=== PATIENT | female | born 1955 | race African-American/Black ===

== ENCOUNTER 2023-08-12 13:03 | Inpatient (IN) | payer OTHER ==
[~2023-08-12] VITALS: Ht 172.7 cm; Wt 89.0 kg
[2023-08-12] MEDS: SODIUM CHLORIDE 0.9% 1000ML BAG (SEPSIS BOLUS) IV ONE (13:22)
[2023-08-12 13:26] LABS: BASOPHILS % 0.4 % (0.0-2.0); EOSINOPHILS % 0.2 % (0.0-5.0); HEMATOCRIT. 29.4 % (36.0-48.0); HEMOGLOBIN. 9.6 g/dL (12.0-16.0); LYMPHOCYTES % 10.5 % (20.0-50.0); MEAN CORPUSCULAR HEMOGLOBIN 29.6 pg (28.0-32.0); MEAN CORPUSCULAR HGB CONC 32.7 g/dL (31.0-37.0); MEAN CORPUSCULAR VOLUME 90.5 fL (81.0-99.0); MEAN PLATELET VOLUME 7.5 fl (7.4-10.4); MONOCYTES % 5.1 % (2.0-8.0); NEUTROPHILS % 83.8 % (40.0-76.0); PLATELET 572 x1000/uL (130-400); RED BLOOD CELL COUNT 3.25 mill/uL (4.2-5.4); RED CELL DISTRIBUTION WIDTH 14.9 % (11.6-14.6); WHITE BLOOD COUNT 14.4 x1000/uL (4.5-11.0)
[2023-08-12] MEDS: CEFTRIAXONE 1GM/50ML 50 ML IV ONE (13:29)
[2023-08-12 13:37] LABS: PROTHROMBIN TIME 11.2 sec (9.6-11.0)
[2023-08-12 13:39] LABS: LACTIC ACID 3.2 mmol/L (0.4-2.0)
[2023-08-12 13:40] LABS: ALANINE AMINOTRANSFERASE 20 IU/L (10-49); ALBUMIN 3.8 g/dL (3.2-4.8); ASPARTATE AMINOTRANSFERASE 39 IU/L (<34); BILIRUBIN TOTAL 0.3 mg/dL (0.1-1.0); CALCIUM 10.6 mg/dL (8.7-10.4); CARBON DIOXIDE 24 mEq/L (21-32); CHLORIDE 102 mEq/L (98-107); CREATINE KINASE 289 IU/L (34-145); CREATININE 1.2 mg/dL (0.6-1.0); GLUCOSE 173 mg/dL (70-105); POTASSIUM 4.6 mEq/L (3.5-5.1); PROTEIN TOTAL 8.1 g/dL (6.0-8.3); SODIUM 136 mEq/L (136-145); UREA NITROGEN BLOOD 26 mg/dL (9-23)
[2023-08-12 13:45] LABS: TROPONIN I HIGH SENSITIVITY 56 ng/L (3.0-34)
[2023-08-12] MEDS: AZITHROMYCIN 500MG/250ML 250 ML IV NR (14:05)
[2023-08-12 14:07] LABS: CLARITY URINE CLOUDY (CLEAR); COLOR URINE YELLOW (YELLOW); GLUCOSE URINE NEGATIVE (NEGATIVE); KETONES URINE NEGATIVE (NEGATIVE); LEUKOCYTE ESTERASE URINE TRACE (NEGATIVE); NITRITE URINE POSITIVE (NEGATIVE); OCCULT BLOOD URINE 3+ (NEGATIVE); PH URINE 5.5 (4.5-8.0); PROTEIN URINE 2+ (NEGATIVE); SPECIFIC GRAVITY URINE 1.016 (1.005-1.030); UROBILINOGEN URINE 0.2 E.U./dL (0.2-1.0)
[2023-08-12 14:09] LABS: BG BASE EXCESS 2.4 mmol/L (-2.0-2.0); BG CARBOXYHEMOGLOBIN 0.1 % (0.5-1.5); BG DEOXYHEMOGLOBIN 0.9 % (0.0-5.0); BG FRACTION INSPIRED OXYGEN 100; BG HCO3 ACT 26.7 mmol/L (22.0-26.0); BG METHEMOGLOBIN 0.4 % (0.0-1.5); BG OXYGEN SATURATION 99.1 % (92.0-98.5); BG OXYHEMOGLOBIN 98.6 % (94.0-97.0); BG PCO2 40.1 mmHg (35.0-45.0); BG PH 7.441 (7.350-7.450); BG PO2 206.1 mmHg (75.0-100.0); BG SAMPLE SITE RIGHT BRACHIAL; BG TOTAL HEMOGLOBIN 10.2 g/dL (12.0-18.0); BG VENT MODE MASK - NRB
[2023-08-12 14:22] LABS: BACTERIA URINE 3+; RBC URINE 25-50 /hpf (0-2); SQUAMOUS EPITHELIAL CELL URINE 1+ /lpf (RARE/1+); YEAST URINE NONE SEEN
[2023-08-12] MEDS ORDERED: METHYLPREDNISOLONE SOD SUCC 125MG/2ML (ACT-O-VIAL) IV SCH (16:30)
[2023-08-12] MEDS ORDERED: MAGNESIUM/ALUMINUM HYDROXIDE/SIMETHICONE 30ML UDC PO PRN (16:30)
[2023-08-12] MEDS ORDERED: ONDANSETRON HCL 4MG/2ML INJ IV PRN (16:30)
[2023-08-12] MEDS ORDERED: ACETAMINOPHEN 325MG TABLET PO PRN ×2 (16:30)
[2023-08-12] MEDS ORDERED: DOCUSATE SODIUM 100MG CAPSULE PO PRN (16:30)
[2023-08-12] MEDS ORDERED: PIPERACILLIN/TAZO 3.375G/50ML 50 ML IV NR (16:34)
[2023-08-12] MEDS ORDERED: VANCOMYCIN 1.5GM/250ML IV NR (17:00)
[2023-08-12] MEDS: DEXT 5%/0.9% NACL 1,000 ML IV SCH (17:19)
[2023-08-12] MEDS: METHYLPREDNISOLONE SOD SUCC 125MG/2ML (ACT-O-VIAL) IV NR (17:19)
[2023-08-12 17:22] LABS: FERRITIN 578 ng/mL (10-291); VITAMIN B12 SERUM 1902 pg/mL (211-911)
[2023-08-12] MEDS ORDERED: MIDAZOLAM 100MG/100ML PMX 100 ML IV PRN (18:45)
[2023-08-12 19:02] LABS: CALCIUM 9.9 mg/dL (8.7-10.4); CARBON DIOXIDE 24 mEq/L (21-32); CHLORIDE 102 mEq/L (98-107); GLUCOSE 155 mg/dL (70-105); IRON 47 ug/dL (50-170); PHOSPHORUS 3.2 mg/dL (2.5-4.9); POTASSIUM 3.8 mEq/L (3.5-5.1); SODIUM 137 mEq/L (136-145); UREA NITROGEN BLOOD 25 mg/dL (9-23)
[2023-08-12] MEDS: LORAZEPAM 2MG/ML INJ IV NR (19:02)
[2023-08-12 19:04] LABS: LACTIC ACID 4.9 mmol/L (0.4-2.0)
[2023-08-12] MEDS: MIDAZOLAM HCL 100 MG in SODIUM CHLORIDE 0.9% 100 ML IV PRN (19:12)
[2023-08-12] MEDS: SUCCINYLCHOLINE CHLORIDE 200MG/10ML IV NR (19:19)
[2023-08-12] MEDS: ETOMIDATE 2MG/ML 10ML VIAL IV NR (19:19)
[2023-08-12 19:30] VITALS: PULSE 96; RESP 16
[2023-08-12 20:06] VITALS: RESP 24
[2023-08-12] MEDS ORDERED: ENOXAPARIN 30MG/0.3ML SYR SUBCUT SCH (21:00)
[2023-08-12 21:15] VITALS: PULSE 102; RESP 16
[2023-08-12 22:20] LABS: CREATINE KINASE MB FRACTION 29.3 ng/mL (0.5-3.6)
[2023-08-12] MEDS: MAGNESIUM 4 G PREMIX 100 ML IV NR (22:52)
[2023-08-12] MEDS: METHYLPREDNISOLONE SOD SUCC 40MG/ML (ACT-O-VIAL) IV SCH (22:52)
[2023-08-12 23:05] LABS: BG BASE EXCESS 0.1 mmol/L (-2.0-2.0); BG CARBOXYHEMOGLOBIN 0.3 % (0.5-1.5); BG DEOXYHEMOGLOBIN 0.3 % (0.0-5.0); BG FRACTION INSPIRED OXYGEN 100; BG HCO3 ACT 23.7 mmol/L (22.0-26.0); BG METHEMOGLOBIN 0.5 % (0.0-1.5); BG OXYGEN SATURATION 99.7 % (92.0-98.5); BG OXYHEMOGLOBIN 98.9 % (94.0-97.0); BG PCO2 34.6 mmHg (35.0-45.0); BG PH 7.453 (7.350-7.450); BG PO2 340.5 mmHg (75.0-100.0); BG SAMPLE SITE RIGHT RADIAL; BG TOTAL HEMOGLOBIN 10.4 g/dL (12.0-18.0); BG VENT MODE VENT - AC
[2023-08-12 23:30] VITALS: PULSE 106; RESP 16
[2023-08-12] MEDS: PIPERACILLIN/TAZO 3.375G/50ML 50 ML IV SCH (23:54)
[2023-08-13] VITALS (57 sets, daily range): BP systolic 124–156; BP diastolic 68–93; PULSE 83–108; RESP 0–26; TEMP 97.7–98.7
[2023-08-13] MEDS ORDERED: IOHEXOL-350 100 ML BOTTLE ONE (04:55)
[2023-08-13] MEDS: PIPERACILLIN/TAZO 3.375G/50ML 50 ML IV SCH (05:54)
[2023-08-13 05:58] LABS: BASOPHILS % 0.1 % (0.0-2.0); HEMATOCRIT. 31.7 % (36.0-48.0); HEMOGLOBIN. 10.4 g/dL (12.0-16.0); LYMPHOCYTES % 7.8 % (20.0-50.0); MEAN CORPUSCULAR HEMOGLOBIN 29.5 pg (28.0-32.0); MEAN CORPUSCULAR HGB CONC 32.9 g/dL (31.0-37.0); MEAN CORPUSCULAR VOLUME 89.9 fL (81.0-99.0); MEAN PLATELET VOLUME 7.4 fl (7.4-10.4); MONOCYTES % 4.7 % (2.0-8.0); NEUTROPHILS % 87.4 % (40.0-76.0); PLATELET 542 x1000/uL (130-400); RED BLOOD CELL COUNT 3.53 mill/uL (4.2-5.4); RED CELL DISTRIBUTION WIDTH 15.2 % (11.6-14.6); WHITE BLOOD COUNT 19.2 x1000/uL (4.5-11.0)
[2023-08-13 06:48] LABS: CREATINE KINASE MB FRACTION 22.7 ng/mL (0.5-3.6)
[2023-08-13 07:02] LABS: ALANINE AMINOTRANSFERASE 18 IU/L (10-49); ALBUMIN 3.5 g/dL (3.2-4.8); ASPARTATE AMINOTRANSFERASE 31 IU/L (<34); BILIRUBIN TOTAL 0.4 mg/dL (0.1-1.0); CALCIUM 10.1 mg/dL (8.7-10.4); CARBON DIOXIDE 24 mEq/L (21-32); CHLORIDE 101 mEq/L (98-107); CHOLESTEROL 175 mg/dL (<200); GLUCOSE 173 mg/dL (70-105); HDL CHOLESTEROL 49 mg/dL (>65); LDL CHOLESTEROL 96 mg/dL (5-100); POTASSIUM 4.3 mEq/L (3.5-5.1); PROTEIN TOTAL 7.1 g/dL (6.0-8.3); SODIUM 136 mEq/L (136-145); T4 FREE 1.41 ng/dL (0.89-1.76); THYROID STIMULATING HORMONE 0.37 uIU/mL (0.55-4.78); TRIGLYCERIDE 92 mg/dL (0-150); UREA NITROGEN BLOOD 26 mg/dL (9-23)
[2023-08-13 07:33] LABS: BG BASE EXCESS -1.4 mmol/L (-2.0-2.0); BG CARBOXYHEMOGLOBIN 0.1 % (0.5-1.5); BG DEOXYHEMOGLOBIN 0.9 % (0.0-5.0); BG METHEMOGLOBIN 0.3 % (0.0-1.5); BG OXYGEN SATURATION 99.1 % (92.0-98.5); BG OXYHEMOGLOBIN 98.7 % (94.0-97.0); BG PCO2 32.5 mmHg (35.0-45.0); BG PH 7.449 (7.350-7.450); BG PO2 160.8 mmHg (75.0-100.0); BG SAMPLE SITE RIGHT RADIAL; BG TOTAL HEMOGLOBIN 11.2 g/dL (12.0-18.0); BG VENT MODE VENT - AC
[2023-08-13] MEDS: IPRATROPIUM/ALBUTEROL 0.5-3(2.5)MG/3ML NEB HHN PRN (08:20)
[2023-08-13] MEDS: BUDESONIDE 0.5MG/2ML NEB HHN SCH (08:20)
[2023-08-13] MEDS ORDERED: LEVETIRACETAM 500 MG in SODIUM CHLORIDE 0.9% 100 ML IV PRN (08:30)
[2023-08-13] MEDS: FUROSEMIDE 40MG/4ML VIAL IVP NR (08:45)
[2023-08-13] MEDS: VANCOMYCIN 2,000 MG in DEXT 5% WATER 500 ML IV NR (08:45)
[2023-08-13] MEDS: PANTOPRAZOLE SODIUM 40 MG/VIAL IV SCH (08:45)
[2023-08-13] MEDS ORDERED: VANCOMYCIN 750MG PREMIX 150 ML IV SCH (12:00)
[2023-08-13] MEDS ORDERED: DEXTROSE 50% WATER 50ML SYRINGE IV PRN (15:15)
[2023-08-13] MEDS: BLOOD SUGAR DIAGNOSTIC STRIP TEST SCH (17:49)
[2023-08-13] MEDS: INSULIN LISPRO 100 UNITS/ML SUBCUT SCH (17:55)
[2023-08-13] MEDS: LEVETIRACETAM 500MG PREMIX 100 ML IV SCH (21:45)
[2023-08-14] VITALS (86 sets, daily range): BP systolic 122–177; BP diastolic 67–134; PULSE 87–106; RESP 14–22; TEMP 97.4–98.3; O2SAT 100
[2023-08-14 05:13] LABS: HEMATOCRIT. 34.1 % (36.0-48.0); HEMOGLOBIN. 11.1 g/dL (12.0-16.0); MEAN CORPUSCULAR HEMOGLOBIN 29.2 pg (28.0-32.0); MEAN CORPUSCULAR HGB CONC 32.7 g/dL (31.0-37.0); MEAN CORPUSCULAR VOLUME 89.3 fL (81.0-99.0); MEAN PLATELET VOLUME 7.4 fl (7.4-10.4); PLATELET 597 x1000/uL (130-400); RED BLOOD CELL COUNT 3.82 mill/uL (4.2-5.4); RED CELL DISTRIBUTION WIDTH 14.9 % (11.6-14.6); WHITE BLOOD COUNT 26.5 x1000/uL (4.5-11.0)
[2023-08-14 05:28] LABS: CALCIUM 9.9 mg/dL (8.7-10.4); CARBON DIOXIDE 25 mEq/L (21-32); CHLORIDE 101 mEq/L (98-107); CREATININE 1.1 mg/dL (0.6-1.0); GLUCOSE 225 mg/dL (70-105); POTASSIUM 3.4 mEq/L (3.5-5.1); SODIUM 136 mEq/L (136-145); UREA NITROGEN BLOOD 29 mg/dL (9-23)
[2023-08-14 05:29] LABS: DIFFERENTIAL COMMENT 1
[2023-08-14] MEDS: CLONIDINE 0.1MG TABLET PO PRN (06:37)
[2023-08-14 07:42] LABS: BG BASE EXCESS 3.7 mmol/L (-2.0-2.0); BG CARBOXYHEMOGLOBIN 0.3 % (0.5-1.5); BG DEOXYHEMOGLOBIN 9.7 % (0.0-5.0); BG FRACTION INSPIRED OXYGEN 35; BG HCO3 ACT 28.1 mmol/L (22.0-26.0); BG METHEMOGLOBIN 0.1 % (0.0-1.5); BG OXYGEN SATURATION 90.3 % (92.0-98.5); BG OXYHEMOGLOBIN 89.9 % (94.0-97.0); BG PCO2 41.3 mmHg (35.0-45.0); BG PO2 56.7 mmHg (75.0-100.0); BG SAMPLE SITE LEFT RADIAL; BG TOTAL HEMOGLOBIN 11.1 g/dL (12.0-18.0); BG VENT MODE VENT - AC/VC
[2023-08-14 07:48] LABS: ANISOCYTOSIS 2+; PLATELET ESTIMATE INCREASED
[2023-08-14] MEDS: POTASSIUM CHLORIDE 20MEQ/PACKET PO SCH (08:18)
[2023-08-14] MEDS: VANCOMYCIN 1.25GM PMX (XELLIA) 250 ML IV SCH (08:18)
[2023-08-14] MEDS: AMLODIPINE 5MG TABLET PO SCH (08:19)
[2023-08-14] MEDS: HYDRALAZINE HCL 25MG TABLET PO SCH ×2 (08:35→14:23)
[2023-08-14] MEDS: HYDRALAZINE 20MG/ML VIAL IV PRN (11:03)
[2023-08-14] MEDS: INSULIN GLARGINE 100 UNITS/ML SUBCUT SCH (13:11)
[2023-08-14] MEDS: METHYLPREDNISOLONE SOD SUCC 125MG/2ML (ACT-O-VIAL) IV SCH (13:12)
[2023-08-14 14:11] LABS: A/G RATIO 0.5 (0.7-1.7); ALBUMIN 2.2 g/dL (2.9-4.4); ALPHA-1-GLOBULIN 0.5 g/dL (0.0-0.4); ALPHA-2-GLOBULIN 1.1 g/dL (0.4-1.0); BETA GLOBULIN 1.4 g/dL (0.7-1.3); GAMMA GLOBULINS 1.4 g/dL (0.4-1.8); GLOBULIN TOTAL 4.4 g/dL (2.2-3.9); M-SPIKE Not Observed g/dL (Not Observed); TOTAL PROTEIN SERUM 6.6 g/dL (6.0-8.5)
[2023-08-14] MEDS ORDERED: INSULIN GLARGINE 100 UNITS/ML SUBCUT SCH (22:00)
[2023-08-15] MEDS ORDERED: VANCOMYCIN 1.25GM PMX (XELLIA) 250 ML IV SCH (09:00)
== END 2023-08-14 23:15 | disposition short-term general hospital (02) | DRG 871 ==
LOC: ER 13:03 → EDBEDREQTM 15:17 → EDBEDREQSVC 15:17 → EDBEDREQ 15:17 → CVICU 15:24 → EDBEDREQSVC 19:51 → MICUSO 08-14 19:11
PROVIDERS: ADMIT Internal Medicine; ATTEND Internal Medicine
PROC: 5A1945Z Respiratory Ventilation, 24-96 Consecutive Hours (ICD-10-PCS; principal; 2023-08-12)
PROC: 0BH17EZ Insertion of Endotracheal Airway into Trachea, Via Natural or Artificial Opening (ICD-10-PCS; 2023-08-12)
PROC: 4A10X4Z Monitoring of Central Nervous Electrical Activity, External Approach (ICD-10-PCS; 2023-08-14)
DX: A41.9 Sepsis, unspecified organism (principal); G93.41 Metabolic encephalopathy; J96.00 Acute respiratory failure, unspecified whether with hypoxia or hypercapnia; J18.9 Pneumonia, unspecified organism; N17.9 Acute kidney failure, unspecified; N39.0 Urinary tract infection, site not specified; C79.31 Secondary malignant neoplasm of brain; E83.52 Hypercalcemia; I10 Essential (primary) hypertension; R56.9 Unspecified convulsions; D64.9 Anemia, unspecified; E11.21 Type 2 diabetes mellitus with diabetic nephropathy; C80.1 Malignant (primary) neoplasm, unspecified; E87.6 Hypokalemia; E86.0 Dehydration
CPT/HCPCS: 31500; 36415; 36600; 70551; 71045; 71275; 80048; 80053; 80061; 81003; 82375; 82550; 82553; 82607; 82728; 82805; 82962; 83036; 83540; 83605; 83735; 83970; 84100; 84145; 84155; 84165; 84439; 84443; 84484; 85025; 85379; 87070; 87077; 87186; 87426; 93005; 93306; 94002; 94003; 94640; 95816; 99291; C9113; J0360; J0456; J0696; J1815; J1940; J1953; J2060; J2250; J2543; J2920; J2930; J3370; J3475; J7030; J7050; J7060; J7626; Q9967